=== PATIENT | female | born 1995 | race Two or more races ===

== ENCOUNTER 2024-11-19 14:25 | Observation (INO) | payer MEDICAID ==
--- NOTE | 2024-11-19 15:05 | DVH ---
BIOPHYSICAL PROFILE HISTORY: term TECHNIQUE: Multiple transabdominal real-time grayscale sonographic images through the gravid uterus of the fetus with duplex Doppler color flow and M-mode spectral analysis FINDINGS: BIOPHYSICAL PROFILE: breathing score: 2 movement score: 2 tone score: 2 Quantitative JOMAR score: 2 (JOMAR: 15.5 Cm.) Total score: 8/8 The cervix obscured Single live fetus in cephalic presentation. heart rate 132 beats per minute. Posterior Grade 3 placenta without previa or abruption Single live fetus at 40 weeks 0 days Biophysical profile score 8/8 corresponding to an CHANDU of 11/19/2024 IMPRESSION: 1. Biophysical profile score: 8/8
--- NOTE | 2024-11-19 16:42 | DVHDS2 ---
Physician Discharge Progress N Final Diagnosis: Term IUP, encounter for surveillance Operations or Procedures: Operations or Procedures NST/BPP/ JOMAR, reviewed, All WNL Commentary: Commentary PATIENT: THEODORE DE LOS SANTOS ACCT: [id number] UNIT: [id number] : 1995 LOC: [facility] ROOM / BED: TRIAGE1 / A AGE / SEX: 29 / F ADM STATUS: ADM IN SERVICE 1427 ORDERING PHYSICIAN: SRINIVAS LEDEZMA DO PROCEDURE(s): BPP - BIOPHYSICAL PROFILE REASON: term ORDER NUMBER(s): [id number], ACCESSION NUMBER(s): [id number] BIOPHYSICAL PROFILE HISTORY: term TECHNIQUE: Multiple transabdominal real-time grayscale sonographic images through the gravid uterus of the fetus with duplex Doppler color flow and M-mode spectral analysis FINDINGS: BIOPHYSICAL PROFILE: breathing score: 2 movement score: 2 tone score: 2 Quantitative JOMAR score: 2 (JOMAR: 15.5 Cm.) Total score: 8/8 The cervix obscured Single live fetus in cephalic presentation. heart rate 132 beats per minute. Posterior Grade 3 placenta without previa or abruption Single live fetus at 40 weeks 0 days Biophysical profile score 8/8 corresponding to an CHANDU of 11/19/2024 IMPRESSION: 1. Biophysical profile score: 8/8 Condition on Discharge: Stable Disposition: Home Discharge Instructions: Diet: Regular Activity: No Restrictions, As Tolerated Medications: na Follow Up Care: Discharge Statement: "Patient was advised to return to the ER or call 911 if any headaches, dizziness, shortness of breath, chest pain, abdominal pain, bleeding, fevers, or worsening of medical condition. Patient was counseled about treatment plan, medications, possible side effects, patientverbalized understanding. All questions were answered to the best of my ability. This discharge took greater then 30 minutes in planning, reviewing documen tation, counseling the patient, and discussing with other team members." Visit Coding OBGYN Date of Service: Nov 19, 2024 Billing Provider: SRINIVAS LEDEZMA DO SLAG EXPANDER Common Visit Codes: 63252-PVD/OBS SAME DATE (HIGH) SLAG EXPANDER Procedure Codes: 11513-01- NON-STRESS TEST SRINIVAS LEDEZMA DO Nov 19, 2024 16:42
== END 2024-11-19 15:47 | disposition home or self-care (01) ==
LOC: LDRP 14:25
PROVIDERS: ADMIT Obstetrics & Gynecology; ATTEND Obstetrics & Gynecology
DX: O48.0 Post-term pregnancy (principal); Z3A.40 40 weeks gestation of pregnancy; Z98.890 Other specified postprocedural states; Z79.899 Other long term (current) drug therapy
CPT/HCPCS: 59025; 76819; 81002; 94760; G0378

== ENCOUNTER 2024-11-21 18:52 | Observation (INO) | payer MEDICAID ==
[~2024-11-21] VITALS: Ht 160 cm; Wt 65.8 kg
--- NOTE | 2024-11-21 19:35 | DVHDS2 ---
Physician Discharge Progress N Final Diagnosis: testing for term Operations or Procedures: Operations or Procedures 29yo IUP@40.2wks. Denies UCs/LOF/VB/NAVARRETE/vision changes/RUQ pain. Endorses +FM and +BH. VSS NST reactive SVE by RN: FT//HI BPP 09/15 FKC/PreE/labor precautions reviewed Condition on Discharge: Stable Disposition: Home Discharge Instructions: Diet: Regular Activity: No Restrictions, As Tolerated Medications: see med list Follow Up Care: Specialist: f/u in 2 days Discharge Statement: "Patient was advised to return to the ER or call 911 if any headaches, dizziness, shortness of breath, chest pain, abdominal pain, bleeding, fevers, or worsening of medical condition. Patient was counseled about treatment plan, medications, possible side effects, patientverbalized understanding. All questions were answered to the best of my ability. This discharge took greater then 30 minutes in planning, reviewing documentation, counseling the patient, and discussing with other team members." Visit Coding OBGYN Date of Service: Nov 21, 2024 Billing Provider: MOJGAN LI CNM HOTEL SERVICE MANAGER Common Visit Codes: [id number] OBS CARE (MOD) HOTEL SERVICE MANAGER Procedure Codes: 59300-49- NON-STRESS TEST MOJGAN LI CNM Nov 21, 2024 19:35
--- NOTE | 2024-11-21 20:12 | DVH ---
OB ULTRASOUND, LIMITED CLINICAL INDICATION: Term TECHNIQUE: Multiple grayscale ultrasound and M-mode images were obtained of the pelvis for evaluation of intrauterine . COMPARISON: US BIOPHYSICAL PROFILE on DOS: 11/19/24 FINDINGS: A single living fetus is seen in vertex/cephalic presentation. Biophysical profile: 09/15 breathin movements: 2 tone: 2 Amniotic fluid volume: 2 Placenta: Posterior, grade 3. Amniotic fluid: Visibly normal. JOMAR 15.9 cm heart rate: 146 beats/min. A complete anatomic survey was not performed on this exam. IMPRESSION: 1. Biophysical profile: 09/15
== END 2024-11-21 20:31 | disposition home or self-care (01) ==
LOC: LDRP 18:52
PROVIDERS: ADMIT Obstetrics & Gynecology; ATTEND Obstetrics & Gynecology
DX: O48.0 Post-term pregnancy (principal); Z3A.40 40 weeks gestation of pregnancy; Z98.890 Other specified postprocedural states
CPT/HCPCS: 59025; 76819; 81002; 94760; G0378

== ENCOUNTER 2024-11-23 18:49 | Observation (INO) | payer MEDICAID ==
--- NOTE | 2024-11-23 19:32 | DVH ---
BIOPHYSICAL PROFILE HISTORY: postdates TECHNIQUE: Multiple transabdominal real-time grayscale sonographic images through the gravid uterus of the fetus with duplex Doppler color flow and M-mode spectral analysis FINDINGS: BIOPHYSICAL PROFILE: breathing score: 2 movement score: 2 tone score: 2 Quantitative JOMAR score: 2 (JOMAR: 14.6 Cm.) Total score: 8/8 The cervix obscured by head Single live fetus in cephalic presentation. heart rate 163 beats per minute. Posterior Grade 3 placenta without previa or abruption Single live fetus at 40 weeks 4 days Biophysical profile score 8/8 corresponding to an CHANDU of 11/19/2024 Not calculated IMPRESSION: 1. Biophysical profile score: 8/8
--- NOTE | 2024-11-23 19:45 | DVHDS2 ---
Physician Discharge Progress N Final Diagnosis: testing for postdates Operations or Procedures: Operations or Procedures SUBJECTIVE Angelia Wise is a 29 yo with IUP at 40w4d presenting for scheduled NST/BPP Denies feeling UCs, vaginal bleeding, or leaking fluid. Endorses positive movement. EDC: 11/19/24 Med Hx: denies Surg Hx: denies Review of Systems: Neuro: No complaints Heart: No complaints Lungs: No complaints GI: No complaints : No complaints Skin: No complaints Extremities: No complaints OBJECTIVE VSS FHR: Baseline: 130 Variability: Moderate Accelerations: Present Decelerations: Absent Category: 1 UCs: none noted Neuro: A&O x4. No apparent distress. Affect appropriate Heart: Regular rate and rhythm Lungs: Clear bilaterally GI: Gravid. No tenderness Skin: Dry and intact. No rashes or lesions BPP: 09/15. vertex. JOMAR 14.6cm ASSESSMENT 29 yo at 40w4d Category 1 Tracing PLAN -Discussed term labor precautions and kick counts. Answered all patient questions and concerns. Patient verbalizes understanding. Patient has induction scheduled tomorrow 11/24 Condition on Discharge: Good Disposition: Home Discharge Instructions: Diet: Regular Activity: No Restrictions, As Tolerated Medications: No change. See med list Follow Up Care: Specialist: induction scheduled tomorrow 11/24 Discharge Statement: "Patient was advised to return to the ER or call 911 if any headaches, dizziness, shortness of breath, chest pain, abdominal pain, bleeding, fevers, or worsening of medical condition. Patient was counseled about treatment plan, medications, possible side effects, patientverbalized understanding. All questions were answered to the best of my ability. This discharge took greater then 30 minutes in planning, reviewing documentation, counseling the patient, and discussing with other team members." Visit Coding OBGYN Date of Service: Nov 23, 2024 Billing Provider: CAM DILLON CNM QUARTER SUPERVISOR Common Visit Codes: 78098-[id number] INP/OBS CARE (MOD) QUARTER SUPERVISOR Procedure Codes: 04974-57- NON-STRESS TEST CAM DILLON CNM Nov 23, 2024 19:45
== END 2024-11-23 19:45 | disposition home or self-care (01) ==
LOC: LDRP 18:49
PROVIDERS: ADMIT Obstetrics & Gynecology; ATTEND Obstetrics & Gynecology
DX: O48.0 Post-term pregnancy (principal); Z3A.40 40 weeks gestation of pregnancy; Z79.899 Other long term (current) drug therapy; Z98.890 Other specified postprocedural states
CPT/HCPCS: 59025; 76819; 81002; 94760; G0378

== ENCOUNTER 2024-11-24 11:34 | Inpatient (IN) | payer MEDICAID ==
[~2024-11-24] VITALS: Ht 157.5 cm; Wt 70.8 kg
[2024-11-24] MEDS ORDERED: LIDOCAINE 2%HCL (LOCAL ANESTH.) INJ 20ML MDV IJ PRN (19:15)
[2024-11-24 19:43] LABS: Hematocrit 36.0 % (36.0-46.0); Hemoglobin 12.2 g/dL (12.2-16.2); Mean Corpuscular Hemoglobin 30.7 pg (28.0-32.0); Mean Corpuscular Volume 90.3 fL (80.0-100.0); Nucleated Red Blood Cells % 0.1 %
[2024-11-24 19:56] LABS: Urine Protein, UAD TRACE (Negative)
[2024-11-24 19:57] LABS: INR 0.92 (0.9-1.15); Partial Thromboplastin Time 24.9 SEC (24.5-34.5); Prothrombin Time 9.8 sec (9.3-11.8)
[2024-11-24 20:04] LABS: Alanine Aminotransferase 17 U/L (7-40); Albumin 3.8 g/dL (3.2-4.8); Anion Gap 12 (5-15); BUN/Creatinine Ratio 10.3 (10.0-20.0); Bilirubin, Total 0.4 mg/dL (0.2-1.0); Glucose 95 mg/dL (74-106); Potassium 3.9 mmol/L (3.5-5.1); Sodium 139 mmol/L (136-145); Total Protein 6.5 g/dL (5.7-8.2)
[2024-11-24 20:06] LABS: Alkaline Phosphatase 277 U/L (46-116); Blood Urea Nitrogen 6 mg/dL (9-23); Calcium 8.5 mg/dL (8.7-10.4); Carbon Dioxide 19 mmol/L (20-31); Chloride 108 mmol/L (98-107)
[2024-11-24 20:06] LABS: Amphetamine Screen, Urine Neg (NEGATIVE); Barbiturate Scree,Urine Neg (NEGATIVE); Benzodiazephine Screen, Urine Neg (NEGATIVE); Cannabinoid Screen, Urine Neg (NEGATIVE); Cocaine Screen, Urine Neg (NEGATIVE); Opiate Scree,Urine Neg (NEGATIVE); Phencyclidine Screen, Urine Neg (NEGATIVE)
[2024-11-24] MEDS: WITCH HAZEL-GLYCERIN PAD TOP PRN (20:26)
[2024-11-24] MEDS: PHISODERM TOP SOLN 240ML BTL TOP PRN (20:26)
[2024-11-24] MEDS: DERMOPLAST 60ML BOTTLE TOP PRN (20:26)
[2024-11-24] MEDS: LACTATED RINGER'S 1,000 ML IV SCH (20:27)
--- NOTE | 2024-11-24 21:07 | DVHHP2 ---
OB CC & HPI Date Date of Admission: Nov 24, 2024 Patient Identification: : 1 Para: 0 EDC: Nov 20, 2024 Chief Complaints: Reason for admission: induction of labor Indication for induction: post dates History of Present Complaints Admission for IOL for postdates 40w4d 11/24/2024 @ 2000 29 y/o (0,0,0,0) @ 40w4d Present to Labor unit for scheduled IOL for postterm Reports good' movements, Denies Leaking of fluid or vaginal bleeding Received care with Dr Isabel LMP: 02/13/2024 EDC: 11/20/2024 HPI care with labs Blood Type O positve GBS Negative Rubella Immune RPR : Non Reactive - normal course thus far 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[employer] PMH: Denies PSH: Denies Medications: PNV Social Hist: Denies Objective Cephalic presentation per Ultrasound 11/23/2024 JOMAR 14 Chemistry Test 11/24/24 19:24 Albumin 3.8 g/dL (3.2-4.8) Calcium Level 8.5 mg/dL (8.7-10.4) L Total Protein 6.5 g/dL (5.7-8.2) Coagulation Test 11/24/24 19:24 Prothrombin Time 9.8 sec (9.3-11.8) Prothrombin Time INR 0.92 (0.9-1.15) Activated Partial Thromboplast Time 24.9 SEC (24.5-34.5) LFT Test 11/24/24 19:24 Alanine Aminotransferase (ALT) 17 U/L (7-40) Alkaline Phosphatase 277 U/L (46-116) H Aspartate Amino Transferase (AST) 24 U/L (13-40) Total Bilirubin 0.4 mg/dL (0.2-1.0) Assessment/Plan SVE /-3 Cephalic per RN Pelvic Exam Misoprostol 50 mcg given P.O @ [address] for scheduled IOL Routine L&D admission orders Misoprostol / Cervidil per protocol Risks and benifits discussed with patient and verbalized understanding EFM per policy & protocol Intrauterine resuscitation PRN Labor analgesia PRN Encourage frequent position change and ambulation to facilitate labor & descent Supportive Care Anticipate Vaginal Delivery Past Medical History Cardiac: No pertinent Hx Pulmonary: No pertinent Hx Central Nervous System: No pertinent Hx GI: No pertinent Hx Hemotology/Oncology: No pertinent Hx Hepatobiliary: No pertinent Hx Psychiatric: No pertinent Hx Musculoskeletal: No pertinent Hx Rheumotologic: No pertinent Hx Infectious Disease: No peritnent Hx ENT: No pertinent Hx Renal/: No pertinent Hx Endocrine: No pertinent Hx Dermatology: No pertinent Hx Past Surgical History: No pertinent Hx OB History OB History Care: Good Care Ultrasounds: Normal mid trimester US Obstetrical Complications: None Medical Complications: None Allergies: Coded Allergies: NO KNOWN ALLERGIES (Unverified , 11/21/24) Home Meds No Active Prescriptions or Reported Meds Current Medications Current Medications Medications (Trade) Dose Ordered Sig/Gabe Route PRN Reason Start Time Stop Time Status Last Admin Lactated Ringer's 1,000 ml @ 125 mls/hr Q8H IV 11/24/24 19:15 11/24/24 20:27 Witch Milla (Tucks) 1 pad PRN PRN TOP PERINEAL AREA DISCOMFORT 11/24/24 19:15 11/24/24 20:26 Sodium Lauryl Sulfate (Phisoderm) 240 ml PRN PRN TOP PERINEAL AREA DISCOMFORT 11/24/24 19:15 11/24/24 20:26 Benzocaine (Dermoplast) 1 applic PRN PRN TOP PERINEAL AREA DISCOMFORT 11/24/24 19:15 11/24/24 20:26 Lidocaine HCl (Xylocaine) 20 ml ONCE PRN IJ PERINEAL AREA DISCOMFORT 11/24/24 19:15 Misoprostol (Cytotec) 50 mcg Q4HPRN PRN PO CERVICAL RIPENING 11/24/24 19:30 11/24/24 20:26 Family & Social History Family/Social History Blood Type: O+ Rubella: immune RPR/VDRL: Negative GBS Status: Negative HBsAG: Negative Review of Systems Constitutional: No symptom reported Ears, Nose, & Throat: No symptom reported Eyes: No symptom reported Pulmonary/Respiratory: No symptom reported Cardiovascular: No symptom reported Gastrointestinal: No symptom reported Genitourinary: No symptom reported Musculoskeletal: No symptom reported Skin: No symptom reported Psychiatric: No symptom reported Endocrine: No symptom reported Hemotologic/Lymphatic: No symptom reported OB Admission Exam Physical Exam Heart: Rhythm Normal Lungs: Clear Abdomen: Gravid Extremities: Normal Reflexes: Normal Cervical Dilatation: 1cm Effacement: 50% Station: -3 Membranes: Intact Heart Rate: 120's Accelerations: Accelerations Present Decelerations: No Decelerations Short Term Variability: Present Ore Roaster Variability: Average (6-25) Contractions on Admission: < 5 Minutes Apart Intensity: Mild OB Plan Plan Admitting Diagnosis: Induction of labor Plan: Induction Induction Methd: Misoprostol protocol Visit Coding OBGYN Date of Service: Nov 24, 2024 Billing Provider: LAZ ACEVEDO CNM PRIMARY GRADE TEACHER Common Visit Codes: 97963-[id number] OBS CARE (MOD) LAZ ACEVEDONMct 2024 21:07
[2024-11-25] VITALS (9 sets, daily range): BP systolic 101–122; BP diastolic 66–80; PULSE 80–92; RESP 17–22; TEMP 98.3–98.4; O2SAT 94–100
--- NOTE | 2024-11-25 05:19 | DVHPN2 ---
CNM Labor Progress Note Date and Time Seen Date Seen: Nov 25, 2024 Time Seen: 04:45 Subjective Patient reports: No new complaints Subjective Comment Subjective 11/25/2024 # 0430 Rounding note Evaluation for placement of cervical ripening balloon for conjunction with misoprostol as method of induction of labor 29 y/o (0,0,0,0) @ 40w4d Present to Labor unit for scheduled IOL for postterm Received care with Dr Isabel LMP: 02/13/2024 EDC: 11/20/2024 HPI care with labs Blood Type O positive GBS Negative Rubella Immune RPR : Non Reactive - normal course thus far OB: #1 - Current Deployment Engineer PMH: Denies PSH: Denies Medications: PNV Social Hist: Denies Monitoring Method Monitoring Method: External Heart Rate Heart Rate Baseline: 120 Heart Rate Variability: Moderate Presence of FHR Accelerations: Yes Presence of FHR Decelerations: No Changes in Trends of Patterns: No Are all 5 Components of the FH: Yes Contractions Contractions Frequency: Other Contractions Intensity: Moderate Contractions Resting Tone: Relaxed Membranes Membranes: Intact Vaginal Exam Vaginal Exam Dilation: 2 Vaginal Exam Effacement: 70 Vaginal Exam Station: -2 Vaginal Exam Presentation: VTX Vaginal Exam Show: Moderate Medications Medications - Pitocin: No Medication - Epidural: No Lab Results Lab Results Current Medications Medications (Trade) Dose Ordered Sig/Gabe Start Time Stop Time Status Last Admin Dose Admin Lactated Ringer's 1,000 ml @ 125 mls/hr Q8H 11/24/24 19:15 11/25/24 03:15 125 MLS/HR Marco Loyola (Tucks) 1 pad PRN PRN 11/24/24 19:15 11/24/24 20:26 1 PAD Sodium Lauryl Sulfate (Phisoderm) 240 ml PRN PRN 11/24/24 19:15 11/24/24 20:26 240 ML Benzocaine (Dermoplast) 1 applic PRN PRN 11/24/24 19:15 11/24/24 20:26 1 APPLIC Lidocaine HCl (Xylocaine) 20 ml ONCE PRN 11/24/24 19:15 Misoprostol (Cytotec) 50 mcg Q4HPRN PRN 11/24/24 19:30 11/25/24 00:43 50 MCG Laboratory Tests Test 11/24/24 19:37 11/24/24 19:36 11/24/24 19:24 Range/Units Urine Opiates Screen Neg NEGATIVE Urine Fentanyl Screen Neg NEGATIVE Urine Barbiturates Screen Neg NEGATIVE Urine Phencyclidine Screen Neg NEGATIVE Urine Amphetamines Screen Neg NEGATIVE Urine Benzodiazepines Screen Neg NEGATIVE Urine Cocaine Screen Neg NEGATIVE Urine Cannabinoids Screen Neg NEGATIVE Urine Color Yellow Yellow Urine Clarity Turbid H Clear Urine pH 6.0 5.0-9.0 Urine Specific [place] 1.024 1.001-1.035 Urine Protein Trace H Negative Urine Ketones Trace Negative Urine Blood Negative Negative /uL Urine Nitrite Negative Negative Urine Bilirubin Negative Negative Urine Urobilinogen Normal Negative mg/dL Urine Leukocyte Esterase 1+ Negative /uL Urine RBC 1 0 - 4 /hpf Urine Microscopic WBC 6 H 0-5 /HPF Urine Squamous Epithelial Cells Mod <5 /hpf Urine Bacteria None seen None Seen /hpf Urine Mucus Few None Seen Urine Glucose Normal Normal mg/dL White Blood Count 6.4 4.4-10.8 10^3/uL Red Blood Count 3.99 L 4.0-5.20 10^6/uL Hemoglobin 12.2 12.2-16.2 g/dL Hematocrit 36.0 36.0-46.0 % Mean Corpuscular Volume 90.3 80.0-100.0 fL Mean Corpuscular Hemoglobin 30.7 28.0-32.0 pg Mean Corpuscular Hemoglobin Concent 34.0 32.0-36.0 g/dL Red Cell Distribution Width 15.0 H 11.8-14.3 % Platelet Count 239 140-450 10^3/uL Mean Platelet Volume 8.2 6.9-10.8 fL Neutrophils (%) (Auto) 63.9 37.0-80.0 % Lymphocytes (%) (Auto) 26.2 10.0-50.0 % Monocytes (%) (Auto) 9.2 0.0-12.0 % Eosinophils (%) (Auto) 0.4 0.0-7.0 % Basophils (%) (Auto) 0.3 0.0-2.0 % Neutrophils # (Auto) 4.1 1.6-8.6 10 ^3/uL Lymphocytes # (Auto) 1.7 0.4-5.4 10 ^3/uL Monocytes # (Auto) 0.6 0-1.3 10 ^3/uL Eosinophils # (Auto) 0 0-0.8 10 ^3/uL Basophils # (Auto) 0 0-0.2 10 ^3/uL Nucleated Red Blood Cells 0.1 % Prothrombin Time 9.8 9.3-11.8 sec Prothrombin Time INR 0.92 0.9-1.15 Activated Partial Thromboplast Time 24.9 24.5-34.5 SEC Sodium Level 139 136-145 mmol/L Potassium Level 3.9 3.5-5.1 mmol/L Chloride Level 108 H 98-107 mmol/L Carbon Dioxide Level 19 L 20-31 mmol/L Anion Gap 12 5-15 Blood Urea Nitrogen 6 L 9-23 mg/dL Creatinine 0.58 0.550-1.02 mg/dL Glomerular Filtration Rate Calc 127 >90 mL/min BUN/Creatinine Ratio 10.3 10.0-20.0 Serum Glucose 95 74-106 mg/dL Calcium Level 8.5 L 8.7-10.4 mg/dL Total Bilirubin 0.4 0.2-1.0 mg/dL Aspartate Amino Transferase (AST) 24 13-40 U/L Alanine Aminotransferase (ALT) 17 7-40 U/L Alkaline Phosphatase 277 H 46-116 U/L Total Protein 6.5 5.7-8.2 g/dL Albumin 3.8 3.2-4.8 g/dL Treponema pallidum Antibody Non-reactive Negative Hepatitis C Antibody Negative Negative Assessment Assessment Assessment/Plan SVE 2/70/-2 Cephalic per CNM SVE Misoprostol 50 mcg X2 doses given Cooks' Cervical Ripening balloon placed 80 ML NS Uterine / 40 ML NS Vaginal Patient tolerated procedure well Admit to Place for scheduled IOL Routine L&D admission orders Misoprostol / Cervidil per protocol Risks and benifits discussed with patient and verbalized understanding EFM per policy & protocol Intrauterine resuscitation PRN Labor analgesia PRN Encourage frequent position change and ambulation to facilitate labor & descent Supportive Care Anticipate Vaginal Delivery Plan Plan discussed with: Patient Visit Coding OBGYN Date of Service: Nov 25, 2024 Billing Provider: LAZ ACEVEDO CNM MEDICAL OFFICE SECRETARY Common Visit Codes: [id number] OBS CARE (MOD), 88162-YNHGATS INP/OBS CARE (MOD) LAZ ACEVEDO CNMOct 2024 05:19
[2024-11-25] MEDS: LACTATED RINGER'S 500 ML IV ONE (06:45)
[2024-11-25] MEDS ORDERED: fentaNYL 400mCg/200ml W ROPIVA 200 ML EPI SCH (06:45)
[2024-11-25] MEDS ORDERED: ROPIVACAINE HCL 100 ML ONE ×2 (06:50→15:25)
[2024-11-25] MEDS: ceFAZolin 2 GM/D5W50ml 50 ML IV ONE (06:56)
[2024-11-25] MEDS: CARBOPROST TROMETHAMINE 250 MCG/1ML VIAL IM ONE (09:15)
[2024-11-25] MEDS ORDERED: METHYLERGONOVINE MALEATE 0.2 MG/ML AMP IM ONE (09:15)
[2024-11-25] MEDS ORDERED: LACT. RINGERS/OXYTOCIN 20UNITS 500 ML IV ONE ×2 (09:15→09:45)
[2024-11-25] MEDS: ceFAZolin 1GM/50ML 50 ML IV SCH ×2 (14:15→22:07)
--- NOTE | 2024-11-25 15:51 | DVHPN2 ---
Chief Complaints Patient reports: No new complaints (Patient has been complete for more than 2 hours she has had no change in station despite pushing epidural and even a vacuum placed. We coordinated a vacuum with contractions and she was unable to move the vertex to lower station at all she has a android pelvis very narrow and bony. Recommended section secondary to CPD cephalopelvic disproportion. She understands the risks benefits complications alternatives as well as the fact that she will have the option for and/or scheduled in the future. Risks benefits complications of both discussed. Patient adamantly wants to proceed with section as recommended. We also discussed the general risks infection bleeding anesthesia acute chronic pain damage to adjacent organs transfusion hep B HIV transfusion reaction my stroke spiral these risks patient adamantly wants to proceed as well as her spouse who speaks Luxembourger only and she was translating for him.) Nursing reports: Other (RN present for exam and vacuum OR crew called for urgent section.) Objective Medications Current Medications Medications (Trade) Dose Ordered Sig/Gabe Route PRN Reason Start Time Stop Time Status Last Admin Benzocaine (Dermoplast) 1 applic PRN PRN TOP PERINEAL AREA DISCOMFORT 11/24/24 19:15 11/24/24 20:26 Cefazolin Sodium 50 ml @ 100 mls/hr Q8HR IV 11/25/24 14:30 11/25/24 14:15 Fentanyl/ Ropivacaine 200 ml @ 8 mls/hr UD EPI 11/25/24 06:45 11/27/24 06:44 Lactated Ringer's 1,000 ml @ 125 mls/hr Q8H IV 11/24/24 19:15 11/25/24 11:20 Lidocaine HCl (Xylocaine) 20 ml ONCE PRN IJ PERINEAL AREA DISCOMFORT 11/24/24 19:15 Misoprostol (Cytotec) 50 mcg Q4HPRN PRN PO CERVICAL RIPENING 11/24/24 19:30 11/25/24 00:43 Sodium Lauryl Sulfate (Phisoderm) 240 ml PRN PRN TOP PERINEAL AREA DISCOMFORT 11/24/24 19:15 11/24/24 20:26 Witch Milla (Tucks) 1 pad PRN PRN TOP PERINEAL AREA DISCOMFORT 11/24/24 19:15 11/24/24 20:26 General: Normal Neck: Normal Lungs: Normal Cardiovascular: Normal Abdominal: Other (Gravid Sami's 7-1/2 lb. Cervix 10 cm 0 station membranes were ruptured clear fluid heart tones reassuring) Musculoskeletal: Normal (Android pelvis narrow bony) Extremities: Normal Skin: Normal Neurological: Normal, Normal Speech Studies Laboratory Tests 11/24/24 19:24 Test 11/24/24 19:24 Range/Units Serum Glucose 95 74-106 mg/dL Ass/Plan Assessment Failure to progress/descend in labor complete dilation 10 cm for greater than 2 hours without adequate contractions epidural and vacuum attempt. Plan Vacuum was placed for 1 contraction coordinated with mom's pushing she pushed 3 times and was absolutely no descent of the vertex suspect occiput posterior as well. Visit Coding OBGYN Date of Service: Nov 25, 2024 Billing Provider: DIANNA PAYNE DO LITERACY COACH Common Visit Codes: 40294-OSK/OBS SAME DATE (LOW), 75920-AQI/OBS SAME DATE (MOD), 36951-THT/OBS SAME DATE (HIGH) LITERACY COACH Procedure Codes: 00296-SWBMR OB CARE, DEL DIANNA PAYNE DO Nov 25, 2024 15:51
--- NOTE | 2024-11-25 15:58 | DVHOP2 ---
Operative Report - 2 Report Details Date: 11/25/24 Preop Diagnosis: Cephalopelvic disproportion 40+ week intrauterine failure to progress Postop Diagnosis: Same occiput posterior Surgeon: Varsha Payne Whiskey Regauger: chief technical officer Anesthesiologist: Jacobo SIMENTAL Anesthesia: Regional (Alfredo SIMENTAL) Drains: Catalan Implant: none Consent: The patient was informed of the risks and benefits of the procedure. These include but are not limited to complications of anesthesia, postoperative infection, incomplete relief of symptoms, recurrence of symptoms, damage to blood vessels, nerves and tendons, deep venous thrombosis, pulmonary embolism a nd possible need for repeat surgery in the future. Complications: none Estimated Blood Loss: 600cc Fluids: see anesthesia log Findings: Occiput posterior, vigorous cry and tone clear amniotic fluid normal pelvic anatomy tubes ovaries uterus bladder Indications for Surgery: Cephalopelvic disproportion failure to progress 10 cm pushing for over 2 hours failed vacuum Name of Procedure Performed Primary section low transverse Procedure Details Procedure Details: Patient taken the operating room placed in sitting position left lateral then placed in left lateral tilt epidural was bolused once adequate analgesia achieved we tested her and low Pfannenstiel incision was made with scalpel through the skin to the rectus fascia nicked in midline carried laterally rectus muscle midline peritoneum identified entered with sharp dissection v esicouterine peritoneum was dissected off lower uterine segment low transverse section through the hysterotomy incision was carried down to the current membranes were ruptured with hemostat and found to be occiput posterior position 1 hand placed lower uterine segment and 's head essentially delivered spontaneously with shoulders and torso nose and mouth immediately bulb suctioned 62nd cord delay clamp was performed blood gas cord sample was sent umbilical blood sample taken.Male vigorous cry and tone. Placenta then removed uterus exteriorized cleared of all debris irrigated and closed with double layer of 2-0 Vicryl vesicouterine peritoneum was incorporated into the 2nd layer of the hysterotomy repair. We had completed hemostasis this 0.600 cc EBL the gutters were cleared of all clots and debris cul-de-sac in infant in the uterus placed back into the pelvis with good tone and no evidence of bleeding. At this point instrument and lap sponge count correct x1 peritoneum closed with running continuous 2-0 Vicryl rectus fascia closed with 0 PDS running continuous looped Camper's Tiffanie's fascia was undermined and approximated with 2-0 chromic interrupted sutures and then the skin was closed with a subcuticular 3-0 Prolene; benzoin Steri-Strips placed ABD pad placed pressure dressing abdominal binder Catalan has clear straw-colored urine take patient taken recovery room stable condition the went to nursery in stable condition. Specimen: Arterial umbilical blood gas, placenta, umbilical blood sample Condition Good Disposition to nursery, mother to recovery room. Visit Coding OBGYN Date of Service: Nov 27, 2024 Billing Provider: DIANNA PAYNE DO SERVICE ORDER TAKER Common Visit Codes: 68888-UBL/OBS SAME DATE (HIGH) SERVICE ORDER TAKER Procedure Codes: 94216-GDBPA OB CARE, DEL DIANNA PAYNE DO Nov 25, 2024 15:58
[2024-11-25] MEDS ORDERED: ONDANSETRON HCL 4 MG/2 ML VIAL IV PRN (16:00)
[2024-11-25] MEDS ORDERED: HYDROmorphone HCL 2 MG/ML VL/or syr IV PRN (16:00)
[2024-11-25] MEDS: LACTATED RINGER'S 1,000 ML IV SCH (16:00)
[2024-11-25] MEDS: LIDOCAINE HCL 2 %PF INJ 10ML AMP IJ ONE (16:08)
[2024-11-25] MEDS: SUCCINYLCHOLINE CHLORIDE 20 MG/ML 10ML VIAL IV ONE (16:13)
[2024-11-25 16:36] LABS: Hematocrit 39.1 % (36.0-46.0); Hemoglobin 13.1 g/dL (12.2-16.2); Mean Corpuscular Hemoglobin 30.5 pg (28.0-32.0); Mean Corpuscular Volume 91.0 fL (80.0-100.0); Nucleated Red Blood Cells % 0.0 %
[2024-11-25] MEDS ORDERED: fentaNYL CITRATE 100 MCG/2 ML VL ONE (16:41)
[2024-11-25] MEDS ORDERED: MORPHINE SULF PF 5 MG/10 ML VIAL ONE (16:41)
[2024-11-25] MEDS ORDERED: BUPIVACAINE 0.75% INJ 10ML MPV SDV IJ ONE (16:48)
[2024-11-25] MEDS ORDERED: BUPIVACAINE/DEXTROSE MPF 0.75% 2 ML AMP IT ONE (16:51)
[2024-11-25] MEDS: LACT. RINGERS/OXYTOCIN 20UNITS 1,000 ML IV ONE (20:07)
[2024-11-26] VITALS (19 sets, daily range): BP systolic 92–126; BP diastolic 55–78; PULSE 76–106; RESP 16–18; TEMP 98–98.7; O2SAT 95–100
[2024-11-26 07:09] LABS: Hematocrit 30.6 % (36.0-46.0); Hemoglobin 10.4 g/dL (12.2-16.2); Mean Corpuscular Hemoglobin 31.3 pg (28.0-32.0); Mean Corpuscular Volume 92.4 fL (80.0-100.0); Nucleated Red Blood Cells % 0.0 %
--- NOTE | 2024-11-26 11:03 | DVHPN2 ---
Chief Complaints Patient reports: No new complaints (Patient has been complete for more than 2 hours she has had no change in station despite pushing epidural and even a vacuum placed. We coordinated a vacuum with contractions and she was unable to move the vertex to lower station at all she has a android pelvis very narrow and bony. Recommended section secondary to CPD cephalopelvic disproportion. She understands the risks benefits complications alternatives as well as the fact that she will have the option for and/or scheduled in the future. Risks benefits complications of both discussed. Patient adamantly wants to proceed with section as recommended. We also discussed the general risks infection bleeding anesthesia acute chronic pain damage to adjacent organs transfusion hep B HIV transfusion reaction my stroke spiral these risks patient adamantly wants to proceed as well as her spouse who speaks [place] only and she was translating for him.), Feels better Nursing reports: No new complaints, No abdominal pain, No chest pain, No dizziness, No cough, Other (RN present for exam and vacuum OR crew called for urgent section.) Objective Vitals Vital Signs Date Time Temp Pulse Resp B/P (MAP) Pulse Ox O2 Delivery O2 Flow Rate FiO2 11/26/24 07:00 97 18 98 Room Air 11/26/24 07:00 92/65 (74) 11/26/24 03:00 98.7 98.7 11/25/24 17:35 0 11/25/24 17:35 100 Medications Current Medications Medications (Trade) Dose Ordered Sig/Gabe Route PRN Reason Start Time Stop Time Status Last Admin Acetaminophen (Ofirmev) 1,000 mg Q8H PRN IV PAIN SCALE 4-6 OR TEMP>100.4 11/25/24 20:15 Cefazolin Sodium 50 ml @ 100 mls/hr Q8H IV 11/25/24 22:00 11/26/24 14:29 11/26/24 05:58 Hydromorphone HCl (Dilaudid Injection) 0.5 mg Q1HP PRN IV SEVERE PAIN (7-10 PAIN SCALE) 11/25/24 16:00 Lactated Ringer's 1,000 ml @ 125 mls/hr Q8H IV 11/25/24 16:00 Ondansetron HCl (Zofran) 4 mg Q4HP PRN IV NAUSEA / VOMITING 11/25/24 16:00 General: Normal Neck: Normal Lungs: Normal Cardiovascular: Normal Abdominal: Normal (Clean dry intact uterus firm 12 week size), Other (Gravid Sami's 7-1/2 lb. Cervix 10 cm 0 station membranes were ruptured clear fluid heart tones reassuring) Musculoskeletal: Normal (Android pelvis narrow bony) Extremities: Normal Skin: Normal Neurological: Normal, Normal Speech Studies Laboratory Tests 11/26/24 06:26 11/24/24 19:24 Test 11/24/24 19:24 Range/Units Serum Glucose 95 74-106 mg/dL Ass/Plan Assessment Postop day 1 stable improved Plan Advanced care. DIANNA PAYNE DO Nov 26, 2024 11:03
[2024-11-26] MEDS: ACETAMINOPHEN IV 1000 MG/100ML (10MG/ML) IV PRN (14:49)
[2024-11-26] MEDS: SIMETHICONE 80 MG CHEWABLE TABLET PO SCH (17:57)
[2024-11-26] MEDS: HYDROcodone-ACET 5/325MG TAB PO PRN (17:58)
[2024-11-26] MEDS ORDERED: HYDROcodone-ACET 10/325MG TAB PO PRN (18:00)
[2024-11-26] MEDS: DOCUSATE SOD 100 MG CAP PO SCH (22:50)
[2024-11-27 03:00] VITALS: BP 113/72; PULSE 96; RESP 16; TEMP 98.2; O2SAT 98
--- NOTE | 2024-11-27 06:00 | DVHPN2 ---
Chief Complaints Patient reports: No new complaints (Patient has been complete for more than 2 hours she has had no change in station despite pushing epidural and even a vacuum placed. We coordinated a vacuum with contractions and she was unable to move the vertex to lower station at all she has a android pelvis very narrow and bony. Recommended section secondary to CPD cephalopelvic disproportion. She understands the risks benefits complications alternatives as well as the fact that she will have the option for and/or scheduled in the future. Risks benefits complications of both discussed. Patient adamantly wants to proceed with section as recommended. We also discussed the general risks infection bleeding anesthesia acute chronic pain damage to adjacent organs transfusion hep B HIV transfusion reaction my stroke spiral these risks patient adamantly wants to proceed as well as her spouse who speaks Iranian only and she was translating for him.), Feels better, Other (Postop day 1 stable improved) Nursing reports: No new complaints, No abdominal pain, No chest pain, No dizziness, No cough, Other (RN present for exam and vacuum OR crew called for urgent section.) Objective Vitals Vital Signs Date Time Temp Pulse Resp B/P (MAP) Pulse Ox O2 Delivery O2 Flow Rate FiO2 11/27/24 03:00 98.2 96 16 113/72 (86) 98 98.2 11/26/24 19:00 Room Air 11/25/24 17:35 0 11/25/24 17:35 100 Medications Current Medications Medications (Trade) Dose Ordered Sig/Gabe Route PRN Reason Start Time Stop Time Status Last Admin Acetaminophen/ Hydrocodone Bitart ([place] 10/325MG Tab) 1 tab Q4HPRN PRN PO FOR PAIN 7-10 11/26/24 18:00 Acetaminophen/ Hydrocodone Bitart ([place] 5/325MG Tab) 1 tab Q4HPRN PRN PO FOR PAIN 1-6 11/26/24 17:45 11/27/24 05:19 Dimethicone (Mylicon Tab) 80 mg QID PO 11/26/24 18:00 11/27/24 05:18 Docusate Sodium (Colace Capsule) 100 mg Q12HR PO 11/26/24 22:00 11/26/24 22:50 Ibuprofen (Motrin Tablet) 800 mg Q8HP PRN PO BREAKTHROUGH PAIN 10/19/25 17:45 General: Normal Neck: Normal Lungs: Normal Cardiovascular: Normal Abdominal: Normal (Kg uterus 12 weeks), Other (Gravid Sami's 7-1/2 lb. Cervix 10 cm 0 station membranes were ruptured clear fluid heart tones reassuring) Musculoskeletal: Normal (Android pelvis narrow bony) Extremities: Normal Skin: Normal Neurological: Normal, Normal Speech Studies Laboratory Tests 11/26/24 06:26 11/24/24 19:24 Test 11/24/24 19:24 Range/Units Serum Glucose 95 74-106 mg/dL Ass/Plan Assessment Postop day 2 stable improved Plan See discharge summary see discharge orders. DIANNA PAYNE DO Nov 27, 2024 06:00
--- NOTE | 2024-11-27 06:08 | DVHDS2 ---
Discharge Summary Date of Admission Nov 24, 2024 at 19:05 Date of Discharge: Nov 27, 2024 Admitting Diagnosis CPD facial progress no progress despite adequate contractions. Wounds: Clean dry intact Labs/Diagnostic Data: Laboratory Results Test 11/26/24 06:26 11/24/24 19:37 11/24/24 19:36 11/24/24 19:24 White Blood Count 16.4 10^3/uL (4.4-10.8) Red Blood Count 3.32 10^6/uL (4.0-5.20) Hemoglobin 10.4 g/dL (12.2-16.2) Hematocrit 30.6 % (36.0-46.0) Mean Corpuscular Volume 92.4 fL (80.0-100.0) Mean Corpuscular Hemoglobin 31.3 pg (28.0-32.0) Mean Corpuscular Hemoglobin Concent 33.8 g/dL (32.0-36.0) Red Cell Distribution Width 15.4 % (11.8-14.3) Platelet Count 210 10^3/uL (140-450) Mean Platelet Volume 8.3 fL (6.9-10.8) Neutrophils (%) (Auto) 82.2 % (37.0-80.0) Lymphocytes (%) (Auto) 8.3 % (10.0-50.0) Monocytes (%) (Auto) 9.4 % (0.0-12.0) Eosinophils (%) (Auto) 0.0 % (0.0-7.0) Basophils (%) (Auto) 0.1 % (0.0-2.0) Neutrophils # (Auto) 13.5 10 ^3/uL (1.6-8.6) Lymphocytes # (Auto) 1.4 10 ^3/uL (0.4-5.4) Monocytes # (Auto) 1.5 10 ^3/uL (0-1.3) Eosinophils # (Auto) 0 10 ^3/uL (0-0.8) Basophils # (Auto) 0 10 ^3/uL (0-0.2) Nucleated Red Blood Cells 0.0 % Urine Opiates Screen Neg (NEGATIVE) Urine Fentanyl Screen Neg (NEGATIVE) Urine Barbiturates Screen Neg (NEGATIVE) Urine Phencyclidine Screen Neg (NEGATIVE) Urine Amphetamines Screen Neg (NEGATIVE) Urine Benzodiazepines Screen Neg (NEGATIVE) Urine Cocaine Screen Neg (NEGATIVE) Urine Cannabinoids Screen Neg (NEGATIVE) Urine Color Yellow (Yellow) Urine Clarity Turbid (Clear) Urine pH 6.0 (5.0-9.0) Urine Specific [place] 1.024 (1.001-1.035) Urine Protein Trace (Negative) Urine Ketones Trace (Negative) Urine Blood Negative /uL (Negative) Urine Nitrite Negative (Negative) Urine Bilirubin Negative (Negative) Urine Urobilinogen Normal mg/dL (Negative) Urine Leukocyte Esterase 1+ /uL (Negative) Urine RBC 1 /hpf (0 - 4) Urine Microscopic WBC 6 /HPF (0-5) Urine Squamous Epithelial Cells Mod /hpf (<5) Urine Bacteria None seen /hpf (None Seen) Urine Mucus Few (None Seen) Urine Glucose Normal mg/dL (Normal) Prothrombin Time 9.8 sec (9.3-11.8) Prothrombin Time INR 0.92 (0.9-1.15) Activated Partial Thromboplast Time 24.9 SEC (24.5-34.5) Sodium Level 139 mmol/L (136-145) Potassium Level 3.9 mmol/L (3.5-5.1) Chloride Level 108 mmol/L (98-107) Carbon Dioxide Level 19 mmol/L (20-31) Anion Gap 12 (5-15) Blood Urea Nitrogen 6 mg/dL (9-23) Creatinine 0.58 mg/dL (0.550-1.02) Glomerular Filtration Rate Calc 127 mL/min (>90) BUN/Creatinine Ratio 10.3 (10.0-20.0) Serum Glucose 95 mg/dL (74-106) Calcium Level 8.5 mg/dL (8.7-10.4) Total Bilirubin 0.4 mg/dL (0.2-1.0) Aspartate Amino Transferase (AST) 24 U/L (13-40) Alanine Aminotransferase (ALT) 17 U/L (7-40) Alkaline Phosphatase 277 U/L (46-116) Total Protein 6.5 g/dL (5.7-8.2) Albumin 3.8 g/dL (3.2-4.8) Treponema pallidum Antibody Non-reactive (Negative) Hepatitis C Antibody Negative (Negative) Other Laboratory Tests 11/26/24 06:26 11/24/24 19:24 Brief Hx & Hospital Course: Patient was essentially shows that complication baby was transferred secondary to digital sepsis. 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 Patient was counseled about treatment plan, medications, possible side effects, patientverbalized understanding. All questions were answered to the best of my ability. This discharge took greater then 30 minutes in planning, reviewing documentation, counseling the patient, and discussing with other team members." ASSESSMENT ASSESSMENT Assessment Same occiput posterior Visit Coding OBGYN Date of Service: Nov 27, 2024 Billing Provider: DIANNA PAYNE DO [employer] Common Visit Codes: 13128-XMGLGGTDRV INP/OBS CARE(HIGH) [employer]ARM MA[employer]GER Procedure Codes: 84646-PVWWY OB CARE, DIANNA PERALTA DO Nov 27, 2024 06:08
[2024-11-27] MEDS ORDERED: HYDR-4072 PO (06:59)
[2024-11-27] MEDS ORDERED: DOCU-94 PO (06:59)
[2024-11-27] MEDS ORDERED: IBUP-1456 PO (06:59)
[2024-11-27 07:00] VITALS: BP 130/87; PULSE 88; RESP 16; TEMP 97.1; O2SAT 99
[2024-11-27] MEDS: IBUPROFEN 800 MG TAB PO PRN (07:07)
== END 2024-11-27 09:27 | disposition home or self-care (01) | DRG 540 ==
LOC: LDRP 19:05 → OBSVTOIN 19:05 → UNDOADMOB 19:05 → INTOOBSV 19:05 → LDRP 11-25 18:30 → UNDODISIN 11-27 09:27
PROVIDERS: ADMIT Obstetrics & Gynecology; ATTEND Obstetrics & Gynecology
PROC: 10D00Z1 Extraction of Products of Conception, Low, Open Approach (ICD-10-PCS; principal; 2024-11-25 16:40)
DX: O33.9 Maternal care for disproportion, unspecified (principal); O64.0XX0 Obstructed labor due to incomplete rotation of fetal head, not applicable or unspecified; O48.0 Post-term pregnancy; O62.2 Other uterine inertia; Z37.0 Single live birth; Z3A.40 40 weeks gestation of pregnancy
CPT/HCPCS: 36415; 59025; 59200; 62282; 80053; 80307; 81001; 85025; 85610; 85730; 86780; 86803; 86850; 86900; 86901; 94760; 94762; 96360; 96361; 96365; 96366; A4344; G0378; J0131; J0330; J2590; J3490